=== PATIENT | male | born 1975 | race Caucasian/White ===

== ENCOUNTER 2024-11-28 10:40 | Inpatient (IN) | payer BC ==
[2024-11-28] VITALS (13 sets, daily range): BP systolic 121–164; BP diastolic 69–95; PULSE 62–102; RESP 11–19; TEMP 97.3–97.7; O2SAT 94–100
[~2024-11-28] VITALS: Ht 195.6 cm; Wt 105.8 kg
[2024-11-28] MEDS: morphine 4 MG/ML inj SYRINge IV ONE ×2 (10:55→12:18)
[2024-11-28] MEDS: ondansetron/PF 4mg/2ml inj IV ONE (10:56)
[2024-11-28] MEDS: propofol 10mg/ml 20ml vial IV ONE ×3 (11:20→13:15)
--- NOTE | 2024-11-28 11:31 | RADIOLOGY REPORT ---
Indication: left forearm deformity Technique: DI FOREARM,INCL.ONE JOINTFOREARM Comparison: None FINDINGS/IMPRESSION: Comminuted and displaced fractures of the mid to distal radial and ulnar diaphyses. There is approxim ately 1.5 cm offset of the ulnar diaphyseal fracture segment. Approximately 1.2 cm displacement of th e radial fracture segments. Surrounding soft tissue edema / hematoma. The fracture apices are angula daniel dorsally. Mildly displaced ulnar styloid fracture.
[2024-11-28] MEDS: ceFAZolin/D5W- 1GM premix 50 ML IV STA (11:48)
[2024-11-28] MEDS ORDERED: magnesium hydroxide 30ml (MOM) UD suspension PO PRN (13:25)
[2024-11-28] MEDS ORDERED: potassium Cl 40MEQ/1/2NS 520ml 520 ML IV PRN (13:25)
[2024-11-28] MEDS ORDERED: magnesium sulf-water 4G/100mL 100 ML IV PRN (13:25)
[2024-11-28] MEDS ORDERED: mag hydrox/Alum hydrox/simeth 30ml oral suspension PO PRN (13:25)
[2024-11-28] MEDS ORDERED: magnesium sulf-water 2g/50mL 50 ML IV PRN (13:25)
[2024-11-28] MEDS ORDERED: HYDROmorphone/PF 0.2 MG/ML SYRINGE IV PRN (13:25)
[2024-11-28] MEDS ORDERED: ondansetron 4mg rapidly disintigrating tab PO PRN (13:25)
[2024-11-28] MEDS ORDERED: ondansetron/PF 4mg/2ml inj IV PRN (13:25)
[2024-11-28] MEDS ORDERED: potassium Cl 20 mEq SR tablet PO PRN ×2 (13:25)
[2024-11-28] MEDS: bacitracin 15gm ointment TP ONE (13:31)
[2024-11-28] MEDS ORDERED: SILD20TA PO (13:34)
[2024-11-28] MEDS ORDERED: tetanus & diphtheria toxoid (Td) vaccine 0.5ml SYRINGE IMVAC ONE (13:35)
[2024-11-28 13:38] LABS: MEAN PLATELET VOLUME 8.8 FL (7.4-10.4); RED CELL DISTRIBUTION WIDTH 13.5 % (11.5-14.5)
--- NOTE | 2024-11-28 13:42 | HISTORY AND PHYSICAL ---
History & Physical Providers to ~ History of Present Illness Reason for Admit\Complaint: Open fracture of left upper extremity History of Present Illness Zenon Holbrook is a 49-year-old male with no reported past medical history who presented to the ED with chief complaint of left forearm open wound injury with associated symptoms of pain caused by mechanical fall while skateboarding today. Patient denies prior MO/CAD, CVA, cardiac arrhythmia, DVT/PE, or GIB. Patient denies chest pain, palpitations, shortness of breath, abdominal pain, n/v/d, fe hortensia, chills, dysuria. Initial diagnostic findings were notable for x-ray revealing fracture of right radial and ulnar diaphyses, mildly displaced ulnar styloid fracture. Orthopedic surgeon Dr. Torres his consulted. Patient is to be admitted for surgical intervention. Allergies: Coded Allergies: No Known Allergies (Unverified , 11/28/24) Home Medications Home Medications Active Reported Revatio* (Sildenafil Citrate) 20 Mg Tablet 1 Tab PO PRN 30 Days Past Medical History Past Medical History Denies Past Surgical History Surgical History Comment Denies Past Social History Social History Comment Alcohol: Denies Tobacco: Denies, never Illicit drug use: Marijuana Living situation: Lives at home with spouse ROS ROS Other than positives in HPI, all 14 review of systems are negative Exam Vitals: Vital Signs Date Time Temp Pulse Resp B/P (MAP) Pulse Ox O2 Delivery O2 Flow Rate FiO2 11/28/24 13:14 57 12 135/77 (96) 100 Room Air 0 11/28/24 12:19 97.7 General: A&Ox 3, NAD HEENT: Normocephalic, PERRLA Neck: Supple, trachea midline, no JVD Chest: Clear to auscultation bilaterally Cardiovascular: RRR, S1&S2 Abdomen: Soft and nontender Extremities: Open wound left forearm Central Nervous System: CN II-XII intact, no focal deficits Musculoskeletal: No paraspinal muscle tenderness, no muscle spasm Skin: Open wound left forearm Additional Plan Assessment & Plan Open fracture, LUE -xray shows fracture of right radial and ulnar diaphyses, mildly displaced ulnar styloid fracture; orthopedic surgeon Dr. Torres consulted -start abx, IVF HTN -amlodipine, prn hydralazine DVT/VTE Prophylaxis: SCDs Code Status: Full Code I spent a total of 35 minutes discussing Advanced Care Planning measures with the patient. Advance care planning: Discussed with patient the importance of advance care planning in case of emergent situation. We discussed various resuscitative me asures/ ACP with the patient at the time of admission. Patient voiced understanding and patient has decided on a full code status Date of Service: Nov 28, 2024 Billing Provider: IVELISSE BETANCUR Common Visit Codes: 13705-GWAXORS INP/OBS CARE (HIGH) Secondary Visit Codes: 27902-DLBVNEQV CARE PLAN 30 MINUTES IVELISSE BETANCUR Nov 28, 2024 13:42
--- NOTE | 2024-11-28 13:42 | Physician Documentation ---
History of Present Illness ~ Chief Complaint: Arm Pain Stated Complaint: ARM PAIN Time Seen by MD: 10:47 Source: patient Mode of Arrival: EMS, Stretcher Exam Limitations: no limitations HPI Chief Complaint: Injured left forearm Caveat: None Independent Historians: None History of Present Illness: Patient is a 49-year-old man who was skateboarding earlier and fell out onto his left hand snapping and breaking his mid left forearm. Patient has an open wound on the left forearm. Patient denies hitting his head or neck. Patient denies any other injuries. Patient's pain is severe. Patient was brought in by paramedics with a splint to the left forearm. Review of systems: All systems were reviewed and are negative except for what is indicated in the history of present illness. Past Medical History: None Past Surgical History: None Social History: , no tobacco use, no alcohol use Medications: Reviewed as documented Nursing Notes Allergies: Reviewed as documented in Nursing Notes Tetanus within 5 years: No Medication Reconciliation Allergies: Coded Allergies: No Known Allergies (Unverified , 11/28/24) Scheduled Amox Tr/Potassium Clavulanate 875/125 MG (Augmentin 875/125 MG), 1 TAB PO BID@0830,1730 Aspirin (Aspirin EC), 1 TAB PO DAILY Sennosides/Docusate Sodium (Senna-S 8.6-50 mg Tablet), 2 TAB PO HS Sildenafil Citrate* (Revatio*), 1 TAB PO PRN, (Reported) Scheduled PRN Oxycodone HCl/Acetaminophen (Percocet 7.5-325 mg Tablet), 1 TAB PO Q6H PRN for moderate or severe pain 4-10 Miscellaneous Medications Home Med List (No Home Medications), (Reported) Review of Systems All Other Systems at this time: Reviewed and Negative ROS Patient denies any other acute symptoms other than above. All other systems are negative Physical Exam Vital Signs: RN Vital Signs have been reviewed: Yes, Temperature: 97.7, Source: Oral, Heart Rate: 61, Respiratory Rate: 15, BP: 141/81, Pulse Oximetry: 100, Weight: 105.800 Oxygen Flow Rate: 0 Pulse Oximetry Reflects: adequate oxygenation Physical Exam General Appearance: Moderate distress HEENT: Normal OP, moist oral mucosa, PERRL, EOMI, head and face atraumatic Neck: supple, normal ROM, trachea midline, no midline tenderness Pulmonary: No respiratory distress, CTA, BS equal Cardiac: RRR, no murmur, rub or gallop, GI: nondistended, soft, nontender, normal bowel sounds, no guarding, no rebound Extremities: normal ROM, no swelling, non-tender- except for the left forearm is an obvious mid left forearm deformity with a 2 cm open wound. 2+ radial pulse in the left wrist. Normal motor function in the fingers of the left hand. Skin: intact, dry, warm, no rashes Neuro: AAOx3, speech is clear, no focal motor weakness, sensation intact to light touch in the fingers of the left hand. Psych: normal affect, good eye contact, no apparent hallucination, normal speech Procedures Joint Reduction : Joint Reduction Site: This is not a joint but left mid forearm fracture reduction Reduction By: orthopedic surgeon Conscious Sedation: Yes Medications/Dose: Propofol 300 mg Pre-Procedure NV Exam: within normal limits Post-Procedure NV Exam: within normal limits Post Reduction Film: good alignment, other (Left mid radius and ulna fractures show good alignment) Tolerated Procedure Well?: yes, no complications Procedure Note Patient has a displaced left radius and ulna fracture. Patient is sedated using propofol and placed in finger traps and manual reduction. Patient had a 2 cm laceration that was irrigated and loosely approximated with six ellis. Patient tolerated the procedure well. Patient required a lot of propofol. Patient's left hand is neurovascularly intact before and after splint application. Patient's mental status after procedural sedation has returned to baseline. Progress Results/Orders Results/Orders Orders - GARRET MEJIAS MD Forearm,Incl.One Joint (11/28/24 11:07) Forearm,Incl.One Joint (11/28/24 12:55) Chest,Single View (11/28/24 13:11) Page Hospitalist (11/28/24 13:12) Fill Out Med Reconciliation (11/28/24 13:12) Completed Orders - GARRET MEJIAS MD Forearm,Incl.One Joint (11/28/24 11:07) Morphine 4mg/Ml Inj. (Morphine Inj.) (11/28/24 10:50) Ondansetron Inj. (Zofran 4mg/2ml Vial) (11/28/24 10:50) Cefazolin/D5w- 1gm Premix (Ancef 1 Gm-D5 (11/28/24 11:03) Propofol Inj (Diprivan Inj) (11/28/24 11:20) Morphine 4mg/Ml Inj. (Morphine Inj.) (11/28/24 12:15) Forearm,Incl.One Joint (11/28/24 12:55) Bacitracin Ointment (Bacitracin Ointment (11/28/24 12:35) Propofol Inj (Diprivan Inj) (11/28/24 12:45) Propofol Inj (Diprivan Inj) (11/28/24 13:00) Cbc/Diff (11/28/24 13:11) Electrocardiogram (11/28/24 13:11) Chest,Single View (11/28/24 13:11) BMP (11/28/24 13:11) Nothing By Mouth (11/28/24 Dinner) Medical Decision Making Findings Differential diagnosis includes but is not limited to: Radius fracture, ulnar fracture, open fracture, comminuted fracture, vascular injury, nerve injury Chest x-ray, single view, indication: Preop Independent interpretation: Lungs are clear, normal mediastinum, normal cardiac silhouette. No acute cardiopulmonary process Left forearm, two views, indication: Trauma Independent interpretation: Comminuted open fracture with some displacement Left forearm x-rays, two views, indication: Postreduction/alignment Independent interpretation: Very good alignment of the radius and ulnar fractures. Laboratory data independent interpretation: CBC: Unremarkable, mild leukocytosis of 13.2 which is likely demargination BNP: Unremarkable Emergency department course/medical decision-making: Patient presents with an open comminuted fracture of the left mid forearm. The open wound on the left forearm was irrigated and closed prior to reduction and alignment of the left radius and ulna fracture. Patient was given Ancef 1 g IV. Test results treatment plan in the need for surgery was discussed with the patient and his . Patient is stable. Consultation/communications: 1:10 p.m.: Case discussed with our orthopedist Dr. Torres. He will consult in surgically repair the fracture. Keep the patient NPO. 1:28 p.m.: Case discussed with our nurse practitioner, Daisy. She will evaluate the patient for admission. Departure Time of Disposition: 13:12 Disposition: 09 ADMITTED INPATIENT Admitted to Inpatient Unit: to hospitalist Admission Level of Care: Med/Surg Impression: Primary Impression: Fracture of radius and ulna Qualified Codes: S52.92XB - Unspecified fracture of left forearm, initial encounter for open fracture type I or II; S52.202B - Unspecified fracture of shaft of left ulna, initial encounter for open fracture type I or II Condition: Improved Referrals: NO PRIMARY CARE PROVIDER (PCP) Prescriptions Oxycodone HCl/Acetaminophen (Percocet 7.5-325 mg Tablet) 7.5 Mg-325 Mg Tablet 1 TAB PO Q6H PRN for moderate or severe pain 4-10 for 5 Days, #20 TAB 0 Refills Prov: IVELISSE BETANCUR ORDERLIES TEACHER 11/29/24 Amox Tr/Potassium Clavulanate 875/125 MG (Augmentin 875/125 MG) 875 Mg-125 Mg Tablet 1 TAB PO BID@0830,1730 for 7 Days, #14 TAB Prov: IVELISSE BETANCUR ORDERLIES TEACHER 11/29/24 Aspirin (Aspirin EC) 81 Mg Tablet.dr 1 TAB PO DAILY for 30 Days, #30 TAB Prov: IVELISSE BETANCUR ORDERLIES TEACHER 11/29/24 Sennosides/Docusate Sodium (Senna-S 8.6-50 mg Tablet) 8.6 Mg-50 Mg Tablet 2 TAB PO HS for 7 Days, #14 TAB 0 Refills Prov: IVELISSE BETANCUR ORDERLIES TEACHER 11/29/24 Education Educated: Patient, Family Educated regarding: diagnosis, treatment Signature Scribe Signature: No scribe Attestation: No scribe GARRET MEJIAS MD Nov 28, 2024 13:42
--- NOTE | 2024-11-28 13:57 | RADIOLOGY REPORT ---
EXAM: DI CHEST,SINGLE VIEW HISTORY: preop COMPARISON: None TECHNIQUE: Portable upright AP view of the chest was performed. FINDINGS: No pneumothorax, consolidative infiltrates, or pulmonary edema. The heart is not enlarged. There is t horacic degenerative disc disease. IMPRESSION: No acute intrathoracic process.
--- NOTE | 2024-11-28 14:29 | ELECTROCARDIOGRAPH REPORT ---
[facility] Test Date: 2024-11-28 Test Time: 14:27:23 Pat Name: JESUS LARES Department: [facility] Patient ID: [facility]-[id number] Room: Gender: M Nutrition Intern: : 1975 Requested By: GARRET MEJIAS Order Number: [id number] Reading MD: Measurements Intervals [place] Rate: 54 P: 45 [place]: 186 QRS: 64 QRSD: 126 T: 49 QT: 422 QTc: 400 Interpretive Statements Sinus bradycardia IVCD, consider atypical RBBB ST elev, probable normal early repol pattern Baseline wander in lead(s) V2,V3,V5 Please click the below link to view image of tracing.
--- NOTE | 2024-11-28 14:53 | RADIOLOGY REPORT ---
EXAM: DI FOREARM,INCL.ONE JOINT CLINICAL INDICATION: POST REDUCTION XRAY OF THE L FOREARM TECHNIQUE: DI FOREARM,INCL.ONE JOINT Comparison: DI FOREARM,INCL.ONE JOINT on DOS: 11/28/24 FINDINGS/IMPRESSION: Comminuted mid radial and ulnar fractures. Ulnar styloid process fracture. Improved anatomic alignmen t status post reduction.
[2024-11-28 15:11] LABS: CREATININE 1.10 MG/DL (0.60-1.10); TOTAL CARBON DIOXIDE 22.8 MMOL/L (24-32); eCRCL 104 ML/MIN; eGFR 71 ML/MIN
[2024-11-28] MEDS: ringers solution, lacted 1,000 ML IV SCH (15:17)
[2024-11-28] MEDS: TETanus/Pertussis (Acell)/Diphther VAC/PF (Tdap-Adult) 0.5ml syringe IMVAC ONE (15:19)
[2024-11-28] MEDS ORDERED: NO HOME MEDS (15:53)
[2024-11-28] MEDS ORDERED: hydrALAZINE 20mg/ml inj. IV PRN (16:30)
[2024-11-28] MEDS: HYDROcodone/acetaminophen 10/325mg tab PO PRN (17:02)
[2024-11-28] MEDS ORDERED: vancomycin 1,000mg inj ONE (18:46)
[2024-11-28] MEDS ORDERED: tobramycin sulfate 1.2gm vial ONE (18:46)
[2024-11-28] MEDS ORDERED: fentaNYL/PF 50MCG/1 ML 2ML syringe ONE (19:12)
[2024-11-28] MEDS ORDERED: midazolam 1 mg/ML 2ml injection ONE (19:12)
[2024-11-28] MEDS ORDERED: ROPIVAcaine 0.5% (5mg/ml) 30ml vial ONE (19:19)
[2024-11-28] MEDS ORDERED: propofol inj 20 ML IV ONE (19:19)
[2024-11-28] MEDS: docusate sod 100mg capsule PO SCH (20:00)
[2024-11-28] MEDS: K and/or MAG REPLACEMENT MC SCH (20:00)
[2024-11-28] MEDS ORDERED: ondansetron/PF 4mg/2ml inj ONE (22:04)
[2024-11-28] MEDS ORDERED: dexamethasone sod phosphate 4mg/ml inj. ONE (22:05)
--- NOTE | 2024-11-28 22:34 | CONSULTATION REPORT ---
History of Present Illness Providers to CC ~ Reason for Admit\Admit Dx: Open fracture of left upper extremity History of Present Illness Orthopedic consultation. History of present illness: 49-year-old male who was skateboarding today and fell onto his right hand and arm. [place] a snapping crunching sound and realize that he had broken his forearm. He presented to the emergency room and there was a open laceration of the proximally 1 cm the midshaft of the ulna. This was now irrigated and washed and temporarily closed with skin ellis until surgical stabilization could be achieved. I was called on an urgent basis to evaluate this patient. Past medical/surgical history: Per admitting history and physical. Review of systems: Enjoying good health denies any other injury other than falling on his elbow and shoulder but no significant pain. Objective: Patient when seen had been placed in the a long-arm posterior splint. He had good distal pulses to his hand limited range of motion to his fingers due to swelling and pain. Denied any gross numbness to his fingers or thumb. Shoulder had excellent range of motion without instability. Balance of his orthopedic exam is within normal limits. X-rays: These reveal a both bone forearm fracture midshaft displaced with some home combination primarily of the olecranon. Assessment: Unstable both bone forearm fracture grade 1 open ulna. Plan: Emergent I and D this forearm and open reduction internal fixation plating of the ulna and radius. I discussed this with the patient and his discussing with him the urgency of the situation in the potential risks benefits complications limitations of the surgery. I obtained informed consent signed his extremity was taken to the operating room for definitive treatment. Thank you for the consultation Allergies: Coded Allergies: No Known Allergies (Unverified , 11/28/24) Home Medications Home Medications Active Reported No Home Medications (Home Med List) Each Revatio* (Sildenafil Citrate) 20 Mg Tablet 1 Tab PO PRN 30 Days Physical Exam Last Vital Signs Recorded: Temperature: 97.3, Source: Temporal, Heart Rate: 62, Respiratory Rate: 17, BP: 164/72, Pulse Oximetry: 100, Weight: 105.800 Results Diagram Lab Result Diagram: 11/28/24 1330 11/28/24 1330 LÁZARO AREVALO MD Nov 28, 2024 22:34
--- NOTE | 2024-11-28 22:41 | OPERATIVE REPORT ---
Operative Report Providers to ~ Date of Procedure: Nov 28, 2024 Pre-Operative Diagnosis: open fracture of radial and ulnar diaphyses, acute hypoxic resp failure Post-Operative Diagnosis SAME as PRE-Op Procedure Performed I&D of grade 1 open ulna fracture midshaft open reduction internal fixation with plating midshaft radius and ulna. Placement of antibiotic beads of the ulna. Surgeon: Lázaro Arevalo MD Audio Visual Secretary None Anesthesiologist: Derick Mandujano Type of Anesthesia: General Findings: Grade 1 open fracture of the distal ulna without gross contamination. Minimal periosteal stripping. Moderate comminution of the ulna fracture. Midshaft fracture of the radius with minimal comminution Complications None Prosthetics\Implants used: Ulna was plated with a bone bridge seven hole plate with 3.5 mm screws between 14 and 16 mm these were locking screws. Radius was fixated with a summa plate system six hole plate 3.5 mm screws between 16 and 18 mm long Estimated Blood Loss: With 100-150 mL. Specimen Removed: Bone fragments that had been stripped of the periosteum Description of Procedure: This patient was taken on an emergent basis to the operating room for an open reduction internal fixation further I and D and placement of antibiotic beads of the open ulna fracture I obtained informed consents he was given intravenous prophylactic antibiotics taken to the operating room and given a general anesthetic the arm was now prepped and draped in usual sterile orthopaedic fashion surgical time-out was taken per protocol and the case was begun an Es march was used for exsanguination tourniquet was insufflated the ulnar incision which was a 1 cm laceration at the fracture site was extended proximally and distally some 4 in on either side dissection was then carried 10 to visualize the ulna and do further debridement there was no gross contamination was however some bone fragments that had been fit with the periosteum so these were removed and then the reduction of the ulna was accomplished and plate fixation with a seven hole plate achieving near anatomic fixation 1 L of antibiotic impregnated normal saline with Ancef was used during the debridement with 2 L of antiseptic solution used. Hemostasis was achieved with electrocautery closure of the subcutaneous tissue with 2-0 Vicryl was accomplished and the skin was closed with skin ellis the fascia of the layers were left open. This is an effort to minimize the potential development of compartment syndrome. Anterior approach to the mid shaft of the radius was accomplished using the anterior approach of Jaime retracting the flexor carpi radialis radially protecting the neurovascular structures reflecting the other anterior muscular sugars laterally easily finding the radius fracture achieving an anatomic reduction. To maintain of the natural bone anterior border of the radius the plate was slightly bent a six hole plate fit nicely was fixated with six locking compression screws. C-arm fluoroscopy was used throughout the case to confirm anatomic reduction of the fracture. Copious antiseptic solution was used prior to closure of the tourniquet was released prior to closure to check for the significant arterial bleeding which none was found. Closure of the subcutaneous tissue again was closed with 2-0 Vicryl the skin was closed with skin ellis good capillary refill to the hand he turned as well as distal pulses. Patient was now placed in sterile dressings which included Xeroform on the ulna sterile as 4x4s on both incisions silk dressing on the radial incision cast padding and a loosely applied long-arm posterior splint patient was now extubated and taken to recovery room in stable condition in his sponge counts were reported to be correct there were no apparent perioperative complications Counts repoted as correct: Yes LÁZARO AREVALO MD Nov 28, 2024 22:41
[2024-11-29] VITALS (10 sets, daily range): BP systolic 111–132; BP diastolic 64–76; PULSE 65–85; RESP 16–18; TEMP 97.7–97.9; O2SAT 96–99
[2024-11-29] MEDS ORDERED: ceFAZolin/D5W- 1GM premix 50 ML IV SCH
--- NOTE | 2024-11-29 03:00 | RADIOLOGY REPORT ---
C-ARM FLUOROSCOPY: PROCEDURE: ORIF left forearm FLUOROSCOPY TIME: 6.6 sec DAP: 0.36 mgy FINDINGS: Spot intraoperative C arm radiographs demonstrating orif left forearm. IMPRESSION: Please refer to surgical report for detailed findings.
[2024-11-29] MEDS: ceFAZolin/D5W- 1GM premix 50 ML IV SCH (03:53)
[2024-11-29 04:58] LABS: MEAN PLATELET VOLUME 9.1 FL (7.4-10.4); RED CELL DISTRIBUTION WIDTH 13.5 % (11.5-14.5)
[2024-11-29 05:18] LABS: CREATININE 0.99 MG/DL (0.60-1.10); TOTAL CARBON DIOXIDE 24.5 MMOL/L (24-32); eCRCL 115 ML/MIN; eGFR 81 ML/MIN
[2024-11-29] MEDS: HYDROcodone/acetaminophen 5mg/325mg tablet PO PRN (09:32)
[2024-11-29] MEDS ORDERED: ASPI81TA52 PO (11:37)
[2024-11-29] MEDS ORDERED: SENN-294 PO (11:37)
[2024-11-29] MEDS ORDERED: AMOX-580 PO (11:38)
[2024-11-29] MEDS ORDERED: HYDR-3965 PO (11:38)
[2024-11-29] MEDS ORDERED: OXYC-149 PO (11:48)
--- NOTE | 2024-11-29 13:31 | DISCHARGE SUMMARY ---
Discharge Summary Providers to CC ~ Discharge Summary Admission Diagnosis: open fracture of radial and ulnar diaphyses, acute hypoxic resp failure Hospital Course DATE OF ADMISSION: 11/28/24 DATE OF DISCHARGE: 11/29/24 Discharge Diagnosis\Comment: Open fracture, LUE HTN Operations\Procedures: I&D of grade 1 open ulna fracture midshaft open reduction internal fixation with plating midshaft radius and ulna Consultants: Orthopedic surgeon Pritesh Liriano Complications: None Condition on DC: Stable New Medications: Aspirin (Aspirin EC) 81 Mg Tablet.dr 1 TAB PO DAILY for 30 Days, #30 TAB Oxycodone HCl/Acetaminophen (Percocet 7.5-325 mg Tablet) 7.5 Mg-325 Mg Tablet 1 TAB PO Q6H PRN for moderate or severe pain 4-10 for 5 Days, #20 TAB 0 Refills Sennosides/Docusate Sodium (Senna-S 8.6-50 mg Tablet) 8.6 Mg-50 Mg Tablet 2 TAB PO HS for 7 Days, #14 TAB 0 Refills Amox Tr/Potassium Clavulanate 875/125 MG (Augmentin 875/125 MG) 875 Mg-125 Mg Tablet 1 TAB PO BID@0830,1730 for 7 Days, #14 TAB Continued Medications: Home Med List (No Home Medications) Each Sildenafil Citrate* (Revatio*) 20 Mg Tablet 1 TAB PO PRN for 30 Days, #90 TAB Discharge Summary: History of Present Illness Zenon Holbrook is a 49-year-old male with no reported past medical history who presented to the ED with chief complaint of left forearm open wound injury with associated symptoms of pain caused by mechanical fall while skateboarding today. Patient denies prior [place]/CAD, CVA, cardiac arrhythmia, DVT/PE, or GIB. Patient denies chest pain, palpitations, shortness of breath, abdominal pain, n/v/d, fever, chills, dysuria. Initial diagnostic findings were notable for x-ray revealing fracture of right radial and ulnar diaphyses, mildly displaced ulnar styloid fracture. Patient is to be admitted for surgical intervention. Hospital Course Patient was started on prophylactic antibiotics and supportive care. Orthopedic surgeon Dr. Torres his consulted and patient underwent I&D of grade 1 open ulna fracture midshaft ORIF with plating midshaft radius and ulna without complication. Op findings were notable for Grade 1 open fracture of the distal ulna without gross contamination, moderate comminution of the ulna fracture, midshaft fracture of the radius with minimal comminution. A cast padding and a loose long-arm posterior splint were applied. Patient did not experience further complications throughout the entire hospital stay and made a good recovery earlier than expected. Patient was seen and examined on the day of discharge. On day of discharge, vss and labs unremarkable. On day of discharge, vss and labs u nremarkable. All labs, diagnostic workups, discharge plan discussed with patient in details during visit before discharge. All questions and concerns answered to the best of my professional knowledge. Patient is to be discharged to home to self and to follow-up with PCP and Dr. Torres within 2 weeks. Physical Exam General: A&Ox 3, NAD HEENT: Normocephalic, PERRLA Neck: Supple, trachea midline, no JVD Chest: Clear to auscultation bilaterally Cardiovascular: RRR, S1&S2 GI: Soft and nontender Extremities: No cyanosis/clubbing/or edema BIOLOGY LECTURER: CN II-XII intact, no focal deficits Musculoskeletal: No paraspinal muscle tenderness, no muscle spasm Skin: incisions stapled, covered in dressing *Problems/Diagnosis: (1) Open fracture Status: Acute Total Time Spent on D/C: > 30 Minutes Date of Service: Nov 29, 2024 Billing Provider: IVELISSE BETANCUR Common Visit Codes: 41103-LWM/OBS DISCH DAY >30min IVELISSE BETANCUR Nov 29, 2024 13:31
[2024-11-30] MEDS ORDERED: amox tr/potassium clavulanate 875/125mg TAB PO SCH (08:30)
== END 2024-11-29 13:05 | disposition home or self-care (01) | DRG 510 ==
LOC: ER 10:40 → ED HOLD 13:28 → SUR 3N 16:19
PROVIDERS: ADMIT Nurse Practitioner Family; ATTEND Nurse Practitioner Family
PROC: 3E0V329 Introduction of Other Anti-infective into Bones, Percutaneous Approach (ICD-10-PCS; 2024-11-28)
PROC: 0PSH04Z Reposition Right Radius with Internal Fixation Device, Open Approach (ICD-10-PCS; 2024-11-28)
PROC: 0PSK04Z Reposition Right Ulna with Internal Fixation Device, Open Approach (ICD-10-PCS; principal; 2024-11-28 19:04)
DX: S52.291B Other fracture of shaft of right ulna, initial encounter for open fracture type I or II (principal); J96.01 Acute respiratory failure with hypoxia; I10 Essential (primary) hypertension; S52.91XA Unspecified fracture of right forearm, initial encounter for closed fracture; F12.90 Cannabis use, unspecified, uncomplicated; V00.131A Fall from skateboard, initial encounter; Y93.89 Activity, other specified; Y92.89 Other specified places as the place of occurrence of the external cause; Y99.8 Other external cause status
CPT/HCPCS: 36415; 71045; 73090; 76000; 80048; 80053; 82948; 83605; 83735; 84145; 85025; 86885; 86900; 86901; 87081; 90715; 93005; 96365; 96375; 96376; 99285; A4215; A4565; A4618; A4620; A6222; A6258; A6446; A6449; A7000; C1713; G0378; J0690; J1100; J2250; J2270; J2405; J2704; J2795; J3010; J3260; J3373; J7030; J7050; J7120